=== PATIENT | female | born 1950 | race African-American/Black ===

== ENCOUNTER 2017-07-15 12:35 | Emergency (ER) | payer MEDICARE, MEDICAID ==
--- NOTE | 2017-07-15 14:23 | RAD ---
CHEST: Date: 07/15/17 History: cough COMPARISON: 12/21/15. FINDINGS: AP view of chest demonstrates situs inversus. The right subclavian central line has now been disconne cted and the proximal portion of the MediPort catheter has been surgically resected and is no longer in place. The lungs are well aerated. No evidence of acute intrathoracic abnormality seen. IMPRESSION: Situs inversus and left axillary surgical changes. No evidence of acute intrathoracic abnormality see n. POS: [facility]
== END 2017-07-15 14:45 | disposition home or self-care (01) ==
LOC: ERS 12:35
DX: J01.90 Acute sinusitis, unspecified (principal); I25.10 Atherosclerotic heart disease of native coronary artery without angina pectoris; E03.9 Hypothyroidism, unspecified; I10 Essential (primary) hypertension; F32.9 Major depressive disorder, single episode, unspecified; Z85.3 Personal history of malignant neoplasm of breast
CPT/HCPCS: 71020

== ENCOUNTER 2018-09-27 20:31 | Emergency (ER) | payer MEDICAID, MEDICARE ==
[2018-09-27] MEDS ORDERED: Morphine 4 MG/ML VIAL ONE (21:16)
[2018-09-27] MEDS ORDERED: Ketorolac Tromethamine 30 MG/ML VIAL ONE (21:16)
--- NOTE | 2018-09-27 21:58 | RAD ---
RIGHT SHOULDER THREE VIEWS: 09/27/18 INDICATION: Right shoulder pain. FINDINGS: There is postsurgical changes of a prior rotator cuff repair. 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 Th e visualized right lung is clear. The patient has complete situs inversus. IMPRESSION: 1. No acute osseous abnormality. 2. Postoperative right shoulder. 3. Complete situs inversus. POS: [facility]
== END 2018-09-27 22:22 | disposition home or self-care (01) ==
LOC: ERS 20:31
DX: G89.18 Other acute postprocedural pain (principal); M25.511 Pain in right shoulder; I10 Essential (primary) hypertension
CPT/HCPCS: 96372; J1885; J2270

== ENCOUNTER 2018-11-04 19:57 | Emergency (ER) | payer MEDICARE, MEDICAID ==
[2018-11-04] MEDS ORDERED: Bicillin LA 1.2 MILLION UNITS/2 ML SYRINGE ONE (20:38)
== END 2018-11-04 21:04 | disposition home or self-care (01) ==
LOC: ERS 19:57
DX: S61.001A Unspecified open wound of right thumb without damage to nail, initial encounter (principal); I10 Essential (primary) hypertension; Z20.2 Contact with and (suspected) exposure to infections with a predominantly sexual mode of transmission; Z87.891 Personal history of nicotine dependence; W26.9XXA Contact with unspecified sharp object(s), initial encounter
CPT/HCPCS: 12001; 96372; J0561

== ENCOUNTER 2019-12-16 09:18 | Outpatient (CLI) | payer MEDICARE, MEDICAID ==
--- NOTE | 2019-12-16 10:10 | ULT ---
Bilateral renal ultrasound Renal arterial Doppler evaluation CLINICAL INDICATION: Chronic kidney disease COMPARISON: None FINDINGS: Right kidney: There is no evidence of a renal mass, renal calculus, or hydronephrosis seen. The right kidney measures 9.3 cm x 3.6 cm. Left kidney: There is no evidence of a renal mass, renal calculus, or hydronephrosis. The left kidney measures 9.9 cm x 4.6 cm. Urinary bladder: Within normal limits for degree of distention. Urinary bladder volume is 36.15 mL. Renal Doppler evaluation with spectral analysis and color flow: The peak systolic velocity in the right renal artery is 89.3 cm/s with peak systolic velocity left re nal artery of 85.8 cm/s, and the systolic velocity in the aorta is 70.5 cm/s. The right renal artery to aorta ratio is 1.27 and on the left is 1.22. Normal renal artery to aorta r atio is less than 3. The resistive index in the right renal arcuate artery is 0.6 and on the left the resistive index is 0 .7. Normal resistive index is less than 0.7. IMPRESSION: 1. Normal bilateral kidneys without renal cortical thinning or evidence of hydronephrosis. 2. Normal renal artery to aorta ratios with normal resistive index right renal arcuate artery and res istive index left renal artery is at the upper limits of normal.
== END 2019-12-16 09:19 | disposition home or self-care (01) ==
LOC: BICULT 09:18
PROVIDERS: ATTEND Internal Medicine Nephrology
DX: I12.9 Hypertensive chronic kidney disease with stage 1 through stage 4 chronic kidney disease, or unspecified chronic kidney disease (principal); N18.3 Chronic kidney disease, stage 3 (moderate)
CPT/HCPCS: 76770; 93975

== ENCOUNTER 2021-08-17 10:31 | Day surgery (SDC) | payer MEDICARE, MEDICAID ==
[2021-08-17] MEDS ORDERED: Sodium Chloride 0.9% 10 ML ONE ×2 (10:44)
[2021-08-17] MEDS ORDERED: diphenhydrAMINE 25 MG CAP PO PRN (11:02)
[2021-08-17] MEDS ORDERED: Acetaminophen 500 MG TAB PO PRN (11:04)
[2021-08-17] MEDS ORDERED: diphenhydrAMINE 25 MG CAP ONE (11:19)
[2021-08-17] MEDS ORDERED: Acetaminophen 500 MG TAB ONE (11:20)
[2021-08-17 14:04] VITALS: TEMP 97.8
[2021-08-17 14:46] VITALS: BP 107/58
== END 2021-08-17 14:46 | disposition home or self-care (01) ==
LOC: ONC/OP 10:31
PROVIDERS: ATTEND Internal Medicine Medical Oncology
PROC: 30233N1 Transfusion of Nonautologous Red Blood Cells into Peripheral Vein, Percutaneous Approach (ICD-10-PCS; principal; 2021-08-17)
DX: D64.9 Anemia, unspecified (principal); Z88.6 Allergy status to analgesic agent
CPT/HCPCS: 36430; 86850; 86900; 86901; P9016